=== PATIENT | male | born 1980 | race Hispanic/Latino ===

== ENCOUNTER 2018-10-08 20:21 | Emergency (ER) | payer OTHER ==
[~2018-10-08] VITALS: Ht 165.1 cm; Wt 108.9 kg
--- OUTSIDE RECORDS SUMMARY | 2018-10-08 20:23 | XMS REPORT ---
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 Allergies, Adverse Reactions, Alerts Allergy Name Allergy Type Status Severity Reaction(s) Onset Date Inactive Date Treating Clinician Comments No Known Allergies DA Active U 2017-12-22 00:00:00 No Known Allergies DA Active U 2013-03-11 00:00:00 Medications This patient has no known medications.
[2018-10-08 20:40] LABS: BASOPHILS % 0.5 % (0.0-1.0); EOSINOPHILS # (AUTO) 0.1 (0.0-0.4); EOSINOPHILS % 0.6 % (0.0-6.0); HEMATOCRIT 45.3 % (38.2-49.6); HEMOGLOBIN 16.4 g/dL (14.0-18.0); LYMPHOCYTES % 23.9 % (18.0-39.1); MEAN CORPUSCULAR HEMOGLOBIN 32.5 pg (28-32); MEAN CORPUSCULAR HGB CONC 36.2 g/dL (31-35); MEAN CORPUSCULAR VOLUME 89.9 fL (81-99); MONOCYTES # (AUTO) 0.5 (0.2-0.8); MONOCYTES % 6.2 % (4.4-11.3); NEUTROPHILS # (AUTO) 5.6 (2.1-6.9); NEUTROPHILS % 68.3 % (38.7-80.0); PLATELET COUNT 284 x10e3/uL (140-360); RED BLOOD COUNT 5.04 x10e6/uL (4.3-5.7); RED CELL DISTRIBUTION WIDTH 11.9 % (11.7-14.4)
[2018-10-08 20:58] LABS: ALANINE AMINOTRANSFERASE 63 IU/L (0-55); ALBUMIN 3.8 g/dL (3.5-5.0); ALBUMIN/GLOBULIN RATIO 1.2 (0.8-2.0); ALKALINE PHOSPHATASE 121 IU/L (40-150); ANION GAP 13.9 mmol/L (8-16); BLOOD UREA NITROGEN 11 mg/dL (7-26); BUN/CREATININE RATIO 8 (6-25); CALCIUM 9.3 mg/dL (8.4-10.2); CARBON DIOXIDE 25 mmol/L (22-29); CHLORIDE 96 mmol/L (98-107); CREATINE KINASE 200 IU/L (30-200); CREATININE, SERUM 1.39 mg/dL (0.72-1.25); EST GLOMERULAR FILTRATION RATE 57 ML/MIN (60-); POTASSIUM 3.9 mmol/L (3.5-5.1); SODIUM 131 mmol/L (136-145)
[2018-10-08] MEDS ORDERED: SODIUM CHLORIDE 0.9% 1000ML 1,000 ML ONE (20:58)
[2018-10-08 20:59] LABS: GLUCOSE 666 mg/dL (74-118)
[2018-10-08] MEDS ORDERED: INSULIN REGULAR, HUMAN 100 UNIT/1 ML 3ML VIAL IV ONE (21:00)
[2018-10-08] MEDS ORDERED: SODIUM CHLORIDE 0.9% 1000ML 1,000 ML IV ONE ×2 (21:00→23:30)
[2018-10-08] MEDS ORDERED: INSULIN REGULAR, HUMAN 100 UNIT/1 ML 3ML VIAL SQ ONE (21:00)
[2018-10-08 21:12] LABS: BILIRUBIN,URINE NEGATIVE (NEGATIVE); CLARITY,URINE CLEAR (CLEAR); COLOR,URINE YELLOW (YELLOW); KETONES,URINE NEGATIVE (NEGATIVE); LEUKOCYTE ESTERASE ,URINE NEGATIVE (NEGATIVE); NITRITE,URINE NEGATIVE (NEGATIVE); PROTEIN,URINE DIPSTICK NEGATIVE (NEGATIVE); URINE UROBILINOGEN 0.2 mg/dL (0.2 - 1)
[2018-10-08 21:12] LABS: AMYLASE 28 U/L (25-125); LIPASE 83 U/L (8-78)
[2018-10-08 21:23] LABS: EPITHELIAL CELLS,URINE RARE /LPF
--- NOTE | 2018-10-08 22:41 | Diagnostic Imaging Report ---
EXAMINATION: CHEST SINGLE (PORTABLE) INDICATION: Short of breath COMPARISON: Chest radiograph 03/05/2014 FINDINGS: AP view TUBES and LINES: None. LUNGS: Low lung volumes. Lungs are clear. There is no evidence of pneumonia or pulmonary edema. PLEURA: No pleural effusion or pneumothorax. HEART AND MEDIASTINUM: The cardiomediastinal silhouette is unremarkable. BONES AND SOFT TISSUES: No acute osseous lesion. Soft tissues are unremarkable. UPPER ABDOMEN: No free air under the diaphragm. IMPRESSION: Low lung volumes otherwise no acute thoracic abnormality. Signed by: Abel Rivera DO on 10/08/2018 10:38 PM
--- NOTE | 2018-10-08 23:30 | NUR ---
FSBS 361, DR MICHAEL AWARE, 2ND LITER NS BOLUS STARTED.
--- NOTE | 2018-10-09 00:31 | NUR ---
SECOND LITER NS INFUSED, FSBS [id number], DR MICHAEL AWARE, DISPO COMPLETE
== END 2018-10-09 00:43 | disposition home or self-care (01) ==
LOC: ER 20:21
DX: E11.65 Type 2 diabetes mellitus with hyperglycemia (principal); R51 Headache; R42 Dizziness and giddiness; F17.210 Nicotine dependence, cigarettes, uncomplicated
CPT/HCPCS: 36415; 71045; 80053; 81001; 82150; 82550; 82553; 83690; 84484; 85025; 93005; 99284; J1817; J7030

== ENCOUNTER 2018-10-12 23:01 | Emergency (ER) | payer OTHER ==
[~2018-10-12] VITALS: Ht 165.1 cm; Wt 108.9 kg
== END 2018-10-13 00:06 | disposition home or self-care (01) ==
LOC: ER 23:07
DX: E11.65 Type 2 diabetes mellitus with hyperglycemia (principal)
CPT/HCPCS: 36415; 82948; 99282

== ENCOUNTER 2019-09-16 19:51 | Emergency (ER) | payer SELFPAY ==
[~2019-09-16] VITALS: Ht 165.1 cm; Wt 108.9 kg
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
== END 2019-09-16 20:23 | disposition left against medical advice (07) ==
LOC: ER 19:51
DX: S00.83XA Contusion of other part of head, initial encounter (principal); W19.XXXA Unspecified fall, initial encounter; Y92.89 Other specified places as the place of occurrence of the external cause; I10 Essential (primary) hypertension; E11.9 Type 2 diabetes mellitus without complications

== ENCOUNTER 2020-03-11 02:05 | Emergency (ER) | payer SELFPAY ==
[~2020-03-11] VITALS: Ht 165.1 cm; Wt 108.9 kg
[2020-03-11] MEDS ORDERED: KETOROLAC TROMETHAMINE 30 MG/ML VIAL IV STA (02:09)
[2020-03-11] MEDS ORDERED: SODIUM CHLORIDE 0.9% 1000ML 1,000 ML IV STA (02:09)
[2020-03-11 02:28] LABS: BASOPHILS # (AUTO) 0.1 (0.0-0.1); BASOPHILS % 0.8 % (0.0-1.0); EOSINOPHILS # (AUTO) 0.2 (0.0-0.4); EOSINOPHILS % 1.9 % (0.0-6.0); HEMOGLOBIN 15.6 g/dL (14.0-18.0); LYMPHOCYTES # (AUTO) 3.4 (1.0-3.2); LYMPHOCYTES % 42.2 % (18.0-39.1); MEAN CORPUSCULAR HEMOGLOBIN 33.1 pg (28-32); MEAN CORPUSCULAR HGB CONC 33.9 g/dL (31-35); MEAN CORPUSCULAR VOLUME 97.7 fL (81-99); MONOCYTES # (AUTO) 0.6 (0.2-0.8); NEUTROPHILS # (AUTO) 3.7 (2.1-6.9); NEUTROPHILS % 46.8 % (38.7-80.0); PLATELET COUNT 285 x10e3/uL (140-360); RED BLOOD COUNT 4.71 x10e6/uL (4.3-5.7); RED CELL DISTRIBUTION WIDTH 12.6 % (11.7-14.4)
[2020-03-11 02:33] LABS: AMPHETAMINES SCREEN,URINE NEGATIVE (NEGATIVE); BENZODIAZEPINES SCREEN,URINE NEGATIVE (NEGATIVE); BILIRUBIN,URINE NEGATIVE (NEGATIVE); CLARITY,URINE CLEAR (CLEAR); COLOR,URINE YELLOW (YELLOW); KETONES,URINE NEGATIVE (NEGATIVE); LEUKOCYTE ESTERASE ,URINE NEGATIVE (NEGATIVE); NITRITE,URINE NEGATIVE (NEGATIVE); PHENCYCLIDINE SCREEN,URINE NEGATIVE (NEGATIVE); PROTEIN,URINE DIPSTICK NEGATIVE (NEGATIVE)
[2020-03-11 02:41] LABS: BACTERIA,URINE RARE /HPF; EPITHELIAL CELLS,URINE FEW /LPF; RBC,URINE 0-5 /HPF (0-5); WBC,URINE (MAN) 0-5 /HPF (0-5)
[2020-03-11 02:42] LABS: MUCUS,URINE RARE (RARE)
[2020-03-11 02:48] LABS: ALANINE AMINOTRANSFERASE 30 IU/L (0-55); ALBUMIN/GLOBULIN RATIO 1.2 (0.8-2.0); ALKALINE PHOSPHATASE 86 IU/L (40-150); BLOOD UREA NITROGEN 15 mg/dL (7-26); BUN/CREATININE RATIO 15 (6-25); CARBON DIOXIDE 29 mmol/L (22-29); CHLORIDE 106 mmol/L (98-107); CREATINE KINASE 282 IU/L (30-200); EST GLOMERULAR FILTRATION RATE > 60 ML/MIN (60-); GLUCOSE 202 mg/dL (74-118); LIPASE 29 U/L (8-78); SODIUM 143 mmol/L (136-145)
[2020-03-11] MEDS ORDERED: ONDANSETRON HCL INJ 2MG/ML 2ML 2 MG/ML VIAL IV STA (04:12)
[2020-03-11] MEDS ORDERED: MORPHINE SULFATE INJ 4 MG/ML INJ 1ML IV PRN (04:15)
[2020-03-11] MEDS ORDERED: MORPHINE SULFATE 2 MG/ML SYR 1ML ONE (04:32)
[2020-03-11] MEDS ORDERED: ONDANSETRON HCL INJ 2MG/ML 2ML 2 MG/ML VIAL ONE (04:33)
[2020-03-11] MEDS ORDERED: ULTRAM50 MG PO (05:06)
[2020-03-11] MEDS ORDERED: SODIUM CHLORIDE 0.9% 50ML 50 ML ONE (05:50)
[2020-03-11] MEDS ORDERED: IOPAMIDOL 370 MG/ML 200 ML INFUS..BTL INJ ONE (05:50)
[2020-03-11 06:06] VITALS: BP 120/70
== END 2020-03-11 06:10 | disposition home or self-care (01) ==
LOC: ER 02:22
DX: R10.11 Right upper quadrant pain (principal); R10.13 Epigastric pain; E11.65 Type 2 diabetes mellitus with hyperglycemia; I10 Essential (primary) hypertension
CPT/HCPCS: 36415; 71045; 74177; 80053; 80307; 80320; 81001; 82550; 82553; 83690; 84484; 85025; 99284; J1885; J2270; J2405; J7030; Q9967

== ENCOUNTER 2020-06-11 07:00 | Emergency (ER) | payer SELFPAY ==
[~2020-06-11] VITALS: Ht 165.1 cm; Wt 108.9 kg
[~2020-06-11 07:00] MED LIST: ULTRAM50 MG PO
[2020-06-11] MEDS ORDERED: ONDANSETRON HCL INJ 2MG/ML 2ML 2 MG/ML VIAL IV STA (07:04)
[2020-06-11] MEDS ORDERED: SODIUM CHLORIDE 0.9% 1000ML 1,000 ML IV STA (07:04)
[2020-06-11] MEDS ORDERED: ASPIRIN 81 MG CHEW TAB PO ONE (07:15)
[2020-06-11] MEDS ORDERED: MORPHINE SULFATE INJ 4 MG/ML INJ 1ML IV PRN (07:15)
[2020-06-11 07:21] LABS: BASOPHILS # (AUTO) 0.1 (0.0-0.1); BASOPHILS % 0.6 % (0.0-1.0); EOSINOPHILS # (AUTO) 0.1 (0.0-0.4); EOSINOPHILS % 1.4 % (0.0-6.0); HEMATOCRIT 46.5 % (38.2-49.6); HEMOGLOBIN 16.1 g/dL (14.0-18.0); LYMPHOCYTES # (AUTO) 2.4 (1.0-3.2); LYMPHOCYTES % 29.1 % (18.0-39.1); MEAN CORPUSCULAR HEMOGLOBIN 32.7 pg (28-32); MEAN CORPUSCULAR HGB CONC 34.6 g/dL (31-35); MEAN CORPUSCULAR VOLUME 94.3 fL (81-99); MONOCYTES # (AUTO) 0.7 (0.2-0.8); MONOCYTES % 8.1 % (4.4-11.3); NEUTROPHILS % 60.6 % (38.7-80.0); PLATELET COUNT 297 x10e3/uL (140-360); RED BLOOD COUNT 4.93 x10e6/uL (4.3-5.7); RED CELL DISTRIBUTION WIDTH 11.9 % (11.7-14.4)
[2020-06-11] MEDS ORDERED: MORPHINE SULFATE INJ 2 MG/ML SYR ONE (07:36)
[2020-06-11 08:14] LABS: ALANINE AMINOTRANSFERASE 26 IU/L (0-55); ALBUMIN 3.8 g/dL (3.5-5.0); ALKALINE PHOSPHATASE 124 IU/L (40-150); ANION GAP 14.4 mmol/L (8-16); BLOOD UREA NITROGEN 15 mg/dL (7-26); BUN/CREATININE RATIO 16 (6-25); CARBON DIOXIDE 23 mmol/L (22-29); CHLORIDE 102 mmol/L (98-107); CREATINE KINASE 234 IU/L (30-200); CREATININE, SERUM 0.96 mg/dL (0.72-1.25); EST GLOMERULAR FILTRATION RATE > 60 ML/MIN (60-); GLUCOSE 337 mg/dL (74-118); POTASSIUM 4.4 mmol/L (3.5-5.1); SODIUM 135 mmol/L (136-145)
[2020-06-11] MEDS ORDERED: ULTRAM 50MG50 MG PO (09:31)
[2020-06-11] MEDS ORDERED: ZOFRAN4 MG SL (09:31)
[2020-06-11 09:44] VITALS: BP 142/75
[2020-06-11] MEDS ORDERED: ULTRAM50 MG PO ×2 (09:51→10:18)
[2020-06-11] MEDS ORDERED: SODIUM CHLORIDE 0.9% 50ML 50 ML ONE (11:48)
[2020-06-11] MEDS ORDERED: IOPAMIDOL 370 MG/ML 200 ML INFUS..BTL INJ ONE (11:49)
== END 2020-06-11 09:49 | disposition home or self-care (01) ==
LOC: ER 07:23
DX: R10.11 Right upper quadrant pain (principal); R11.0 Nausea; E11.65 Type 2 diabetes mellitus with hyperglycemia; I10 Essential (primary) hypertension
CPT/HCPCS: 36415; 74177; 76705; 80053; 82550; 82553; 83690; 84484; 85025; 99284; J2270; J7030; Q9967

== ENCOUNTER 2020-06-15 01:36 | Inpatient (IN) | payer SELFPAY ==
[2020-06-15] VITALS (8 sets, daily range): BP systolic 131–153; BP diastolic 72–97
[~2020-06-15] VITALS: Ht 167.6 cm; Wt 113.4 kg
[~2020-06-15 01:36] MED LIST changes: +ULTRAM 50MG50 MG PO; +ZOFRAN4 MG SL
[2020-06-15] MEDS ORDERED: MORPHINE SULFATE INJ 4 MG/ML INJ 1ML IV PRN ×2 (02:00→12:15)
[2020-06-15 02:29] LABS: BASOPHILS # (AUTO) 0.1 (0.0-0.1); BASOPHILS % 0.7 % (0.0-1.0); EOSINOPHILS # (AUTO) 0.1 (0.0-0.4); EOSINOPHILS % 1.5 % (0.0-6.0); HEMATOCRIT 46.9 % (38.2-49.6); HEMOGLOBIN 16.3 g/dL (14.0-18.0); LYMPHOCYTES # (AUTO) 2.3 (1.0-3.2); MEAN CORPUSCULAR HEMOGLOBIN 33.4 pg (28-32); MEAN CORPUSCULAR HGB CONC 34.8 g/dL (31-35); MEAN CORPUSCULAR VOLUME 96.1 fL (81-99); MONOCYTES # (AUTO) 0.6 (0.2-0.8); MONOCYTES % 7.9 % (4.4-11.3); NEUTROPHILS # (AUTO) 4.3 (2.1-6.9); NEUTROPHILS % 58.5 % (38.7-80.0); PLATELET COUNT 281 x10e3/uL (140-360); RED BLOOD COUNT 4.88 x10e6/uL (4.3-5.7); RED CELL DISTRIBUTION WIDTH 11.8 % (11.7-14.4)
[2020-06-15 02:42] LABS: ALANINE AMINOTRANSFERASE 28 IU/L (0-55); ALBUMIN 3.7 g/dL (3.5-5.0); ALBUMIN/GLOBULIN RATIO 0.9 (0.8-2.0); ALKALINE PHOSPHATASE 99 IU/L (40-150); ANION GAP 15.2 mmol/L (8-16); BLOOD UREA NITROGEN 12 mg/dL (7-26); BUN/CREATININE RATIO 12 (6-25); CALCIUM 9.2 mg/dL (8.4-10.2); CARBON DIOXIDE 26 mmol/L (22-29); CHLORIDE 101 mmol/L (98-107); CREATININE, SERUM 1.01 mg/dL (0.72-1.25); EST GLOMERULAR FILTRATION RATE > 60 ML/MIN (60-); GLUCOSE 303 mg/dL (74-118); POTASSIUM 4.2 mmol/L (3.5-5.1); SODIUM 138 mmol/L (136-145)
[2020-06-15] MEDS ORDERED: PIPERACILLIN/TAZO 4.5 GM 100 ML IV STA (03:23)
[2020-06-15] MEDS ORDERED: SODIUM CHLORIDE 0.9% 1000ML 1,000 ML IV SCH (04:30)
[2020-06-15] MEDS: SODIUM CHLORIDE 0.9% 1000ML 1,000 ML IV SCH ×3 (05:46→16:18)
[2020-06-15] MEDS ORDERED: BUPIVACAINE 0.25% 30ML SDV ONE (09:07)
[2020-06-15] MEDS ORDERED: HYDROCODON-ACE1 EA12 PO (09:36)
[2020-06-15] MEDS ORDERED: ONDANSETRON HCL INJ 2MG/ML 2ML 2 MG/ML VIAL IV PRN (12:15)
[2020-06-15] MEDS ORDERED: ACETAMINOPHEN 325 MG TAB PO PRN (12:15)
[2020-06-15] MEDS ORDERED: HYDRALAZINE HCL 20 MG/ML VIAL IV PRN (12:15)
[2020-06-15] MEDS: MORPHINE SULFATE INJ 2 MG/ML SYR IV PRN (13:15)
[2020-06-15] MEDS ORDERED: MIDAZOLAM HCL 2 MG/2 ML VIAL ONE (13:45)
[2020-06-15] MEDS ORDERED: MORPHINE SULFATE INJ 10 MG/ML ONE (13:45)
[2020-06-15] MEDS ORDERED: FENTANYL CITRATE/PF 100MCG/2 ML INJ ONE (13:45)
[2020-06-15] MEDS ORDERED: ROCURONIUM BROMIDE 10 MG/ML 5ML VIAL IV ONE (15:41)
[2020-06-15] MEDS ORDERED: ONDANSETRON HCL INJ 2MG/ML 2ML 2 MG/ML VIAL ONE (15:41)
[2020-06-15] MEDS ORDERED: GLYCOPYRROLATE INJ 0.2 MG/ML VIAL ONE (15:41)
[2020-06-15] MEDS ORDERED: LIDOCAINE HCL 2% LOCAL INJ 5 ML SDV VIAL INJ ONE (15:41)
[2020-06-15] MEDS ORDERED: PROPOFOL IV EMULSION 10 MG/ML 20 ML VIAL ONE (15:41)
[2020-06-15] MEDS ORDERED: SEVOFLURANE INHAL SOLN 250 ML PEN BTL ONE (15:41)
[2020-06-15] MEDS ORDERED: LIDOCAINE HCL 2% JELLY 5 ML TUBE ONE (15:41)
[2020-06-15] MEDS ORDERED: DEXAMETHASONE SOD PHOS INJ 4 MG/ML VIAL ONE (15:41)
[2020-06-15] MEDS ORDERED: NEOSTIGMINE 1 MG/ML 10ML VIAL ONE (15:41)
[2020-06-15] MEDS: HYDROCODONE/APAP 7.5MG-325MG 1 EA TAB PO PRN (19:44)
[2020-06-16] VITALS: BP 142/90
[2020-06-16] MEDS: HYDROCODONE/APAP 7.5MG-325MG 1 EA TAB PO PRN ×3 (00:21→13:21)
[2020-06-16] MEDS: SODIUM CHLORIDE 0.9% 1000ML 1,000 ML IV SCH ×2 (03:45→12:40)
[2020-06-16 04:00] VITALS: BP 133/86
[2020-06-16 06:46] LABS: BASOPHILS % 0.2 % (0.0-1.0); EOSINOPHILS % 0.1 % (0.0-6.0); HEMOGLOBIN 13.9 g/dL (14.0-18.0); LYMPHOCYTES # (AUTO) 1.9 (1.0-3.2); MEAN CORPUSCULAR HEMOGLOBIN 33.3 pg (28-32); MEAN CORPUSCULAR HGB CONC 33.9 g/dL (31-35); MEAN CORPUSCULAR VOLUME 98.1 fL (81-99); MONOCYTES # (AUTO) 0.7 (0.2-0.8); MONOCYTES % 6.5 % (4.4-11.3); NEUTROPHILS # (AUTO) 7.4 (2.1-6.9); NEUTROPHILS % 73.7 % (38.7-80.0); PLATELET COUNT 239 x10e3/uL (140-360); RED BLOOD COUNT 4.18 x10e6/uL (4.3-5.7)
[2020-06-16 07:46] LABS: ANION GAP 13.7 mmol/L (8-16); BLOOD UREA NITROGEN 8 mg/dL (7-26); BUN/CREATININE RATIO 10 (6-25); CALCIUM 8.1 mg/dL (8.4-10.2); CARBON DIOXIDE 24 mmol/L (22-29); CHLORIDE 105 mmol/L (98-107); CREATININE, SERUM 0.82 mg/dL (0.72-1.25); EST GLOMERULAR FILTRATION RATE > 60 ML/MIN (60-); GLUCOSE 151 mg/dL (74-118); POTASSIUM 3.7 mmol/L (3.5-5.1); SODIUM 139 mmol/L (136-145)
[2020-06-16 08:08] VITALS: BP 134/86
[2020-06-16 08:15] VITALS: BP 134/86
[2020-06-16 08:33] LABS: CHOL/HDL RATIO 4.9 (3.9-4.7)
[2020-06-16 08:59] LABS: ALBUMIN 3.3 g/dL (3.5-5.0); BILIRUBIN,DIRECT 0.1 mg/dL (0.0-0.5)
[2020-06-16] MEDS: MORPHINE SULFATE INJ 2 MG/ML SYR IV PRN (09:23)
[2020-06-16] MEDS: PIPERACILLIN/TAZOBAC 3.375 GM in SODIUM CHLORIDE 0.9% 50ML 50 ML IV SCH ×2 (09:23→16:36)
[2020-06-16] MEDS ORDERED: HYDROCODON-ACE1 EA12 PO (09:51)
[2020-06-16 11:50] VITALS: BP 131/89
[2020-06-16 16:26] VITALS: BP 128/91
== END 2020-06-16 18:37 | disposition home or self-care (01) | DRG 418 ==
LOC: ER 01:54 → ERHOLD 03:42 → MED/SURG2 05:57
PROVIDERS: ADMIT Internal Medicine; ATTEND Internal Medicine
PROC: 0FT44ZZ Resection of Gallbladder, Percutaneous Endoscopic Approach (ICD-10-PCS; principal; 2020-06-15 10:30)
DX: K80.00 Calculus of gallbladder with acute cholecystitis without obstruction (principal); Z68.41 Body mass index [BMI] 40.0-44.9, adult; I10 Essential (primary) hypertension; E66.01 Morbid (severe) obesity due to excess calories; Z20.822 Contact with and (suspected) exposure to COVID-19
CPT/HCPCS: 36415; 80048; 80053; 80061; 80076; 82948; 83036; 83605; 83690; 85025; 87040; 88304; 96365; 99284; C1766; J1100; J2001; J2250; J2270; J2405; J2543; J2710; J3010; J7030; U0002

== ENCOUNTER 2020-06-21 03:33 | Emergency (ER) | payer SELFPAY ==
[~2020-06-21] VITALS: Ht 320 cm; Wt 113.4 kg
[~2020-06-21 03:33] MED LIST changes: +HYDROCODON-ACE1 EA12 PO
[2020-06-21 04:20] LABS: BASOPHILS % 0.3 % (0.0-1.0); EOSINOPHILS # (AUTO) 0.1 (0.0-0.4); EOSINOPHILS % 1.2 % (0.0-6.0); HEMATOCRIT 45.8 % (38.2-49.6); HEMOGLOBIN 15.5 g/dL (14.0-18.0); LYMPHOCYTES # (AUTO) 3.3 (1.0-3.2); LYMPHOCYTES % 35.4 % (18.0-39.1); MEAN CORPUSCULAR HEMOGLOBIN 32.4 pg (28-32); MEAN CORPUSCULAR HGB CONC 33.8 g/dL (31-35); MEAN CORPUSCULAR VOLUME 95.8 fL (81-99); MONOCYTES # (AUTO) 0.8 (0.2-0.8); MONOCYTES % 8.5 % (4.4-11.3); NEUTROPHILS # (AUTO) 5.1 (2.1-6.9); NEUTROPHILS % 54.3 % (38.7-80.0); PLATELET COUNT 308 x10e3/uL (140-360); RED BLOOD COUNT 4.78 x10e6/uL (4.3-5.7); RED CELL DISTRIBUTION WIDTH 12.2 % (11.7-14.4)
[2020-06-21 04:25] LABS: INR 0.88; PARTIAL THROMBOPLASTIN TIME 30.9 seconds (23.8-35.5); PROTHROMBIN TIME 12.4 seconds (11.9-14.5)
[2020-06-21 04:32] LABS: ALANINE AMINOTRANSFERASE 51 IU/L (0-55); ALBUMIN 3.6 g/dL (3.5-5.0); ALBUMIN/GLOBULIN RATIO 0.8 (0.8-2.0); ALKALINE PHOSPHATASE 99 IU/L (40-150); ANION GAP 14.5 mmol/L (8-16); BLOOD UREA NITROGEN 18 mg/dL (7-26); BUN/CREATININE RATIO 16 (6-25); CALCIUM 9.2 mg/dL (8.4-10.2); CARBON DIOXIDE 28 mmol/L (22-29); CHLORIDE 103 mmol/L (98-107); CREATINE KINASE 114 IU/L (30-200); CREATININE, SERUM 1.15 mg/dL (0.72-1.25); EST GLOMERULAR FILTRATION RATE > 60 ML/MIN (60-); GLUCOSE 163 mg/dL (74-118); POTASSIUM 4.5 mmol/L (3.5-5.1); SODIUM 141 mmol/L (136-145)
[2020-06-21] MEDS ORDERED: SODIUM CHLORIDE 0.9% 50ML 50 ML ONE (05:00)
[2020-06-21] MEDS ORDERED: IOPAMIDOL 370 MG/ML 200 ML INFUS..BTL INJ ONE (05:00)
== END 2020-06-21 07:02 | disposition home or self-care (01) ==
LOC: ER 03:54
DX: R07.9 Chest pain, unspecified (principal); M79.602 Pain in left arm; M54.2 Cervicalgia; R51.9 Headache, unspecified; E11.65 Type 2 diabetes mellitus with hyperglycemia; I10 Essential (primary) hypertension
CPT/HCPCS: 36415; 71260; 74177; 80053; 82550; 82553; 82948; 84484; 85025; 85610; 85730; 93005; 99283; Q9967